=== PATIENT | female | born 1950 ===

== ENCOUNTER 2017-02-05 11:16 | Inpatient (IN) | payer MEDICARE ==
[~2017-02-05 11:16] MED LIST: ASPIRIN81 M1 PO; BREO ELLIPTA 11 EAC1 IH; CHANTIX1 EACH PO; CRESTOR10 MG/TAB PO; HYDROCODON-ACE1 EA17 PO; HYDROCORTISO453.6 G1 TOP; IPRAT-ALBUT 0.5-3 ML IH; LEVAQUIN750 M1 PO; LEVOTHYROXINE112 MC3 PO; MUCINEX600 M1 PO; NIACIN500 M2 PO; NITRO-DUR1 EAC1 TP; NITRO-DUR1 EAC3 TD; NITROGLYCERIN0.4 M2 SL; PREDNISONE10 M1 PO; VALIUM5 M1 PO; [UNRECOGNIZED DRUG - OTHER] TP
[2017-02-05] MEDS ORDERED: NO HOME MEDICATION XX (11:26)
[2017-02-05] MEDS ORDERED: ASPIRIN81 M1 PO (11:56)
[2017-02-05] MEDS ORDERED: BREO ELLIPTA 11 EAC1 INH (11:57)
[2017-02-05] MEDS ORDERED: COMBIVENT RESPIM4 G1 INH (11:57)
[2017-02-05] MEDS ORDERED: VALIUM5 M1 PO (11:58)
[2017-02-05] MEDS ORDERED: NIASPAN500 M1 PO (11:58)
[2017-02-05] MEDS ORDERED: ROSUVASTATIN CA10 MG PO (11:59)
[2017-02-05] MEDS ORDERED: NITRO-DUR1 EAC1 TP (12:01)
[2017-02-05] MEDS ORDERED: OTEZLA1 EAC1 (12:05)
[2017-02-05] MEDS ORDERED: HYDROCODON-ACE1 EA17 PO (12:06)
[2017-02-05] MEDS ORDERED: LEVOTHYROXINE100 MC1 PO (12:07)
[2017-02-05] MEDS ORDERED: NITROGLYCERIN0.4 M2 SL (12:08)
[2017-02-05] MEDS ORDERED: IPRAT-ALBUT 0.5-3 ML INH (12:09)
[2017-02-05 12:13] LABS: BASO % 0.1 % (0-2); EOSINOPHIL ABSOLUTE COUNT 0.1 tho/cmm (0.0-0.7); HCT-HEMATOCRIT 35.5 % (34.0-49.0); HGB-HEMOGLOBIN 12.5 gm/dl (12.0-15.5); IMMATURE GRANULOCYTES ABSOLUTE 0.04 tho/cmm (0-0.03); IMMATURE GRANULOCYTES PERCENT 0.6 % (0-0.3); LYMPH % 14.2 % (20-45); MCH (MEAN CORPUSCULAR HGB) 30.7 pg (28.0-32.0); MCHC MEAN CORPUSCULAR HGB CONC 35.2 % (32.0-36.0); MCV (MEAN CELL VOLUME) 87.2 fl (82.0-96.0); MEAN PLATELET VOLUME 8.9 cmc (9.4-12.4); MONO % 7.7 % (0-12); MONOCYTE ABSOLUTE COUNT 0.6 tho/cmm (0.0-1.2); NEUTROPHIL ABSOLUTE COUNT 5.5 tho/cmm (1.6-8.0); NEUTROPHIL-AUTOMATED 5.5 tho/cmm (1.6-8.0); NEUTROPHILS % 76.4 % (40-80); PLATELET COUNT 328 tho/cmm (150-450); RED BLOOD COUNT 4.07 mil/cmm (4.00-5.20); RED CELL DISTRIBUTION WIDTH 13.7 % (12.4-16.4); WHITE BLOOD COUNT 7.1 tho/cmm (4.0-10.0)
[2017-02-05 12:43] LABS: ALB/GLOB RATIO 1.1 (0.8-2.0); ALBUMIN 3.9 g/dl (3.5-5.0); ALKALINE PHOSPHATASE 77 U/L (33-138); ALT/SGPT 35 U/L (12-78); AST/SGOT 129 U/L (10-40); BILIRUBIN,TOTAL 1.4 mg/dl (0-1.5); BLOOD UREA NITROGEN 6 mg/dl (6-24); CALCIUM 8.5 mg/dl (8.5-10.5); CARBON DIOXIDE-VENOUS 37 mmol/L (22-32); CHLORIDE 69 mmol/l (96-110); CREATININE 0.72 mg/dl (0.50-1.10); GLUCOSE 76 mg/dL (70-110); eGFR VALUE FOR BLACK >90 mL/Min
[2017-02-05 12:45] LABS: ANION GAP 16 mmol/L (0-20)
[2017-02-05 12:48] LABS: POTASSIUM 2.8 mmol/L (3.7-5.1); SODIUM 119 mmol/L (135-145)
[2017-02-05 14:59] LABS: TSH-THYROID STIMULATING HORM. 62.7 uIU/ml (0.40-3.80)
[2017-02-05 16:16] LABS: ALCOHOL (ETOH) <10 mg/dl (<10); SODIUM 123 mmol/L (135-145)
[2017-02-05 17:10] LABS: OSMOLALITY 251 mOsm/kg (275-295)
[2017-02-05 18:05] LABS: URINE TOTAL PROTEIN-RANDOM 41.4 mg/dl (<11.8)
[2017-02-05 18:07] LABS: URINE BILIRUBIN NEGATIVE (NEG); URINE BLOOD MODERATE (NEG); URINE GLUCOSE (UA) NEGATIVE (NEG); URINE KETONE LARGE (NEG); URINE LEUKOCYTE ESTERASE NEGATIVE (NEG); URINE NITRITE NEGATIVE (NEG); URINE PH 6.5 (5.0-8.0); URINE PROTEIN MODERATE (NEG)
[2017-02-05 18:08] LABS: URINE APPEARANCE CLEAR; URINE COLOR YELLOW
[2017-02-05 18:19] LABS: URINE WBC RARE /[HPF] (0-5)
[2017-02-05 18:20] LABS: URINE EPITHELIAL CELLS 0-3 /[HPF] (0-10); URINE MUCUS 1+
[2017-02-05 19:17] LABS: POTASSIUM 3.7 mmol/L (3.7-5.1)
[2017-02-05 21:38] LABS: URINE PRT/CR RATIO 0.48 Ratio (0.0-0.20)
[2017-02-05 23:45] LABS: ABG CO2 ARTERIAL 25 mmol/L (21-27); ARTERIAL BLD GAS O2 SATURATION 73 % (95-98); ARTERIAL BLOOD GAS PCO2 48 mmHg (32-45); BICARBONATE 23 mmol/L (21-28); BLOOD GAS BASE EXCESS -3 mM/L (-/+3); PH 7.31 Units (7.35-7.45)
[2017-02-05 23:49] LABS: ARTERIAL PO2 39 mmHg (70-100)
[2017-02-06 00:01] LABS: INR 1.2 INR (0.9-1.1); PROTHROMBIN TIME 13.8 SECONDS (9.0-13.6)
[2017-02-06 00:44] LABS: ANION GAP 18 mmol/L (0-20); BLOOD UREA NITROGEN 5 mg/dl (6-24); CALCIUM 7.9 mg/dl (8.5-10.5); CARBON DIOXIDE-VENOUS 30 mmol/L (22-32); CHLORIDE 81 mmol/l (96-110); CREATININE 0.57 mg/dl (0.50-1.10); POTASSIUM 3.6 mmol/L (3.7-5.1); SODIUM 125 mmol/L (135-145); eGFR VALUE FOR BLACK >90 mL/Min
[2017-02-06 01:03] LABS: GLUCOSE 129 mg/dL (70-110)
[2017-02-06 03:03] LABS: HCT-HEMATOCRIT 31.3 % (34.0-49.0); HGB-HEMOGLOBIN 10.8 gm/dl (12.0-15.5); MCV (MEAN CELL VOLUME) 88.2 fl (82.0-96.0); RED CELL DISTRIBUTION WIDTH 13.9 % (12.4-16.4)
[2017-02-06 03:13] LABS: BLOOD GAS BASE EXCESS 7 mM/L (-/+3); PH 7.33 Units (7.35-7.45)
[2017-02-06 03:14] LABS: ABG CO2 ARTERIAL 36 mmol/L (21-27); ARTERIAL BLD GAS O2 SATURATION 98 % (95-98); ARTERIAL BLOOD GAS PCO2 66 mmHg (32-45); ARTERIAL PO2 116 mmHg (70-100); BICARBONATE 34 mmol/L (21-28)
[2017-02-06 05:18] LABS: BASO % 0.1 % (0-2); HCT-HEMATOCRIT 28.5 % (34.0-49.0); HGB-HEMOGLOBIN 9.7 gm/dl (12.0-15.5); IMMATURE GRANULOCYTES ABSOLUTE 0.08 tho/cmm (0-0.03); IMMATURE GRANULOCYTES PERCENT 0.7 % (0-0.3); LYMPH % 3.4 % (20-45); LYMPH ABSOLUTE COUNT 0.4 tho/cmm (0.8-4.5); MCH (MEAN CORPUSCULAR HGB) 30.1 pg (28.0-32.0); MCV (MEAN CELL VOLUME) 88.5 fl (82.0-96.0); MONO % 2.5 % (0-12); MONOCYTE ABSOLUTE COUNT 0.3 tho/cmm (0.0-1.2); NEUTROPHIL ABSOLUTE COUNT 10.7 tho/cmm (1.6-8.0); NEUTROPHIL-AUTOMATED 10.7 tho/cmm (1.6-8.0); NEUTROPHILS % 93.3 % (40-80); PLATELET COUNT 304 tho/cmm (150-450); RED BLOOD COUNT 3.22 mil/cmm (4.00-5.20)
[2017-02-06 05:30] LABS: WHITE BLOOD COUNT 11.4 tho/cmm (4.0-10.0)
[2017-02-06 05:35] LABS: ALB/GLOB RATIO 1.1 (0.8-2.0); ALKALINE PHOSPHATASE 59 U/L (33-138); ANION GAP 15 mmol/L (0-20); AST/SGOT 90 U/L (10-40); BILIRUBIN,TOTAL 0.9 mg/dl (0-1.5); BLOOD UREA NITROGEN 6 mg/dl (6-24); CALCIUM 7.8 mg/dl (8.5-10.5); CARBON DIOXIDE-VENOUS 33 mmol/L (22-32); CHLORIDE 82 mmol/l (96-110); GLUCOSE 143 mg/dL (70-110); POTASSIUM 4.1 mmol/L (3.7-5.1); SODIUM 126 mmol/L (135-145); eGFR VALUE FOR BLACK >90 mL/Min
[2017-02-06 05:38] LABS: ALT/SGPT 29 U/L (12-78)
[2017-02-06 06:24] LABS: ABG CO2 ARTERIAL 37 mmol/L (21-27); ARTERIAL BLD GAS O2 SATURATION 98 % (95-98); ARTERIAL PO2 114 mmHg (70-100); BICARBONATE 35 mmol/L (21-28); BLOOD GAS BASE EXCESS 8 mM/L (-/+3)
[2017-02-06 06:27] LABS: ARTERIAL BLOOD GAS PCO2 74 mmHg (32-45)
[2017-02-06 08:02] LABS: PROCALCITONIN <0.05 ng/ml (0.05-0.09)
[2017-02-06 09:07] LABS: ABG CO2 ARTERIAL 36 mmol/L (21-27); ARTERIAL BLOOD GAS PCO2 62 mmHg (32-45); BICARBONATE 34 mmol/L (21-28); BLOOD GAS BASE EXCESS 8 mM/L (-/+3); PH 7.36 Units (7.35-7.45)
[2017-02-06 09:08] LABS: ARTERIAL BLD GAS O2 SATURATION 96 % (95-98); ARTERIAL PO2 75 mmHg (70-100)
[2017-02-06 09:50] LABS: POTASSIUM 4.3 mmol/L (3.7-5.1)
[2017-02-06 13:49] LABS: ANION GAP 16 mmol/L (0-20); BLOOD UREA NITROGEN 10 mg/dl (6-24); CALCIUM 7.7 mg/dl (8.5-10.5); CARBON DIOXIDE-VENOUS 30 mmol/L (22-32); CHLORIDE 85 mmol/l (96-110); CREATININE 0.93 mg/dl (0.50-1.10); GLUCOSE 204 mg/dL (70-110); POTASSIUM 3.5 mmol/L (3.7-5.1); SODIUM 127 mmol/L (135-145); eGFR VALUE FOR BLACK 73 mL/Min
--- NOTE | 2017-02-06 18:30 | NUR ---
0700 UNABLE TO DRAW BLOOD FROM LAURA-CATH, SLUGGISH RETURN. TPA INSTILLED IN PORTACATH. PT. OPENS EYES TO SHAKE AND SHOUT. ABG RESULTS GIVEN TO DR. ESPARZA AND Julieta RUBIN APRN, ORDERS RECIEVED. RESP. THERAPY HERE TO PLACE ON BIPAP. RT.UPPER ARM WITH COBAN PRESSURE DRESSING. 0800 AWAKE AND TRIES TO PULL OFF BIPAP MASK, SITTING UP. ORIENTED TO THAT SHE IS IN HOSPITAL, NOT TOWN OR DATE. REASSURED AND PLACED BACK ON BIPAP. 0900 BP IS LOW, RECHECKED CUFF PRESSURE. DR. MAYER HERE, CONDITION UPDATE GIVEN. ALBUMIN 5% 250CC STARTED BOLUS. 1000 BP IMPROVED BRIEFLY WITH ALBUMIN. BP IS LOW AGAIN. Froy RODRIGUEZ RN WITH INTENSIVISTS NOTIFIED. Dhara ARANDA APRN NOTIFIED. LABS CALLED TO DR. MAYER. ORDERS RECIEVED. IV CHANGED TO D5W. 1030 ALBUMIN 5% 500CC STARTED ORDERED. 1100 RESP. THERAPY HERE STARTING ART. LINE IN RT. RADIAL. 1230 CONTINUES OBTUNDED, ON BIPAP. SAO2 DROPPING TO 80'S. RESP. THERAPY NOTIFIED. BIPAP SETTINGS ADJUSTED. 1345 LAB RESULTS CALLED TO DR. MAYER WITH CONDITION UPDATE INCLUDING LOW U.O.LT. ARM COBAN RELEASED, BRUISING @ FORMER PICC SITE. HEMATOMA NOTED ABOVE LEFT ANTECUBETAL. 1500 RESTING QUEITLY. VS ARE STABLE. NO C/O AND NO INCREASE IN URINE OUTPUT. 1610 DR MAYER CALLED CONDITION UPDATE, NO ORDERS @ THIS TIME.
[2017-02-06 23:27] LABS: POTASSIUM 3.6 mmol/L (3.7-5.1)
[2017-02-07 04:31] LABS: IMMATURE GRANULOCYTES ABSOLUTE 0.18 tho/cmm (0-0.03); IMMATURE GRANULOCYTES PERCENT 1.1 % (0-0.3); LYMPH % 2.2 % (20-45); LYMPH ABSOLUTE COUNT 0.4 tho/cmm (0.8-4.5); MCH (MEAN CORPUSCULAR HGB) 30.7 pg (28.0-32.0); MCHC MEAN CORPUSCULAR HGB CONC 35.2 % (32.0-36.0); MCV (MEAN CELL VOLUME) 87.3 fl (82.0-96.0); MEAN PLATELET VOLUME 9.3 cmc (9.4-12.4); MONO % 2.3 % (0-12); MONOCYTE ABSOLUTE COUNT 0.4 tho/cmm (0.0-1.2); NEUTROPHIL ABSOLUTE COUNT 16.1 tho/cmm (1.6-8.0); NEUTROPHIL-AUTOMATED 16.1 tho/cmm (1.6-8.0); NEUTROPHILS % 94.4 % (40-80); PLATELET COUNT 233 tho/cmm (150-450); RED BLOOD COUNT 2.28 mil/cmm (4.00-5.20); RED CELL DISTRIBUTION WIDTH 14.7 % (12.4-16.4)
[2017-02-07 04:32] LABS: HCT-HEMATOCRIT 19.9 % (34.0-49.0)
[2017-02-07 05:38] LABS: ABG CO2 ARTERIAL 35 mmol/L (21-27); ARTERIAL BLD GAS O2 SATURATION 97 % (95-98); ARTERIAL BLOOD GAS PCO2 50 mmHg (32-45); ARTERIAL PO2 79 mmHg (70-100); BICARBONATE 33 mmol/L (21-28); BLOOD GAS BASE EXCESS 9 mM/L (-/+3)
[2017-02-07 05:40] LABS: PH 7.44 Units (7.35-7.45)
[2017-02-07 05:42] LABS: ALB/GLOB RATIO 1.8 (0.8-2.0); ALBUMIN 3.6 g/dl (3.5-5.0); ALKALINE PHOSPHATASE 43 U/L (33-138); ALT/SGPT 24 U/L (12-78); BILIRUBIN,DIRECT 0.3 mg/dl (0.0-0.3); BILIRUBIN,INDIRECT 0.4 mg/dL (0.0-1.0); BILIRUBIN,TOTAL 0.7 mg/dl (0-1.5); BLOOD UREA NITROGEN 10 mg/dl (6-24); CALCIUM 8.1 mg/dl (8.5-10.5); CARBON DIOXIDE-VENOUS 32 mmol/L (22-32); CHLORIDE 87 mmol/l (96-110); CREATININE 0.93 mg/dl (0.50-1.10); GLUCOSE 143 mg/dL (70-110); PHOSPHOROUS 1.4 mg/dl (2.5-4.9); SODIUM 127 mmol/L (135-145); eGFR VALUE FOR BLACK 73 mL/Min
[2017-02-07 05:43] LABS: ANION GAP 12 mmol/L (0-20); AST/SGOT 54 U/L (10-40); MAGNESIUM 1.6 mg/dl (1.8-2.6); POTASSIUM 4.4 mmol/L (3.7-5.1)
[2017-02-07 13:19] LABS: POTASSIUM 3.8 mmol/L (3.7-5.1)
[2017-02-07 15:04] LABS: IRON BINDING CAPACITY 216 ug/dl (250-450)
[2017-02-07 15:10] LABS: IRON 56 ug/dl (37-170)
[2017-02-08 01:55] LABS: POTASSIUM 3.7 mmol/L (3.7-5.1)
[2017-02-08 06:00] LABS: ALBUMIN 3.1 g/dl (3.5-5.0); ANION GAP 11 mmol/L (0-20); BLOOD UREA NITROGEN 7 mg/dl (6-24); CARBON DIOXIDE-VENOUS 31 mmol/L (22-32); CHLORIDE 96 mmol/l (96-110); CREATININE 0.76 mg/dl (0.50-1.10); GLUCOSE 210 mg/dL (70-110); MAGNESIUM 2.3 mg/dl (1.8-2.6); PHOSPHOROUS 1.5 mg/dl (2.5-4.9); POTASSIUM 4.2 mmol/L (3.7-5.1); SODIUM 134 mmol/L (135-145); eGFR VALUE FOR BLACK >90 mL/Min
[2017-02-08 21:10] LABS: POTASSIUM 4.5 mmol/L (3.7-5.1)
[2017-02-09 05:51] LABS: BLOOD UREA NITROGEN 10 mg/dl (6-24); CALCIUM 8.1 mg/dl (8.5-10.5); CARBON DIOXIDE-VENOUS 33 mmol/L (22-32); CHLORIDE 97 mmol/l (96-110); CREATININE 1.01 mg/dl (0.50-1.10); GLUCOSE 168 mg/dL (70-110); SODIUM 135 mmol/L (135-145); eGFR VALUE FOR BLACK 66 mL/Min
[2017-02-09 05:52] LABS: ANION GAP 9 mmol/L (0-20); POTASSIUM 4.4 mmol/L (3.7-5.1)
[2017-02-10 06:55] LABS: ALBUMIN 3.2 g/dl (3.5-5.0); ANION GAP 11 mmol/L (0-20); BLOOD UREA NITROGEN 9 mg/dl (6-24); CALCIUM 8.1 mg/dl (8.5-10.5); CARBON DIOXIDE-VENOUS 34 mmol/L (22-32); CHLORIDE 95 mmol/l (96-110); CREATININE 0.75 mg/dl (0.50-1.10); GLUCOSE 128 mg/dL (70-110); SODIUM 136 mmol/L (135-145); eGFR VALUE FOR BLACK >90 mL/Min
[2017-02-10 07:01] LABS: POTASSIUM 4.1 mmol/L (3.7-5.1)
[2017-02-11] MEDS ORDERED: KEFLEX500 M4 PO (11:12)
[2017-02-11] MEDS ORDERED: SULFAMYLON60 GM TOP (11:15)
[2017-02-11] MEDS ORDERED: PREDNISONE10 M1 (11:15)
== END 2017-02-11 15:35 | DRG 80 ==
LOC: EDMED 11:16 → EMR2 15:05 → PCUA 15:55 → CCU 21:08 → 5WE 02-10 12:45
PROVIDERS: Emergency Medicine; Family Medicine; Internal Medicine; Internal Medicine Critical Care Medicine; Internal Medicine Nephrology; Physician Assistant; Registered Nurse; ADMIT Internal Medicine
PROC: 02HV33Z Insertion of Infusion Device into Superior Vena Cava, Percutaneous Approach (ICD-10-PCS; 2017-02-06)
PROC: 30233N1 Transfusion of Nonautologous Red Blood Cells into Peripheral Vein, Percutaneous Approach (ICD-10-PCS; principal; 2017-02-07)
DX: E03.5 Myxedema coma (principal); G92 Toxic encephalopathy; J96.21 Acute and chronic respiratory failure with hypoxia; A41.9 Sepsis, unspecified organism; E87.3 Alkalosis; J96.22 Acute and chronic respiratory failure with hypercapnia; E87.1 Hypo-osmolality and hyponatremia; J44.1 Chronic obstructive pulmonary disease with (acute) exacerbation; L03.317 Cellulitis of buttock; R62.7 Adult failure to thrive; J44.9 Chronic obstructive pulmonary disease, unspecified; Z99.81 Dependence on supplemental oxygen; E03.9 Hypothyroidism, unspecified; E78.5 Hyperlipidemia, unspecified; G25.81 Restless legs syndrome; M19.90 Unspecified osteoarthritis, unspecified site; E87.6 Hypokalemia; L40.9 Psoriasis, unspecified; E83.42 Hypomagnesemia; E83.51 Hypocalcemia; F17.210 Nicotine dependence, cigarettes, uncomplicated; Z85.118 Personal history of other malignant neoplasm of bronchus and lung; Z92.21 Personal history of antineoplastic chemotherapy; Z90.49 Acquired absence of other specified parts of digestive tract; Z90.710 Acquired absence of both cervix and uterus
CPT/HCPCS: C1751; G0480; J0610; J0690; J1650; J1720; J2543; J2930; J2997; J3370; J3475; J3480; J7030; J7040; J7050; J7512; P9016; P9045